=== PATIENT | female | born 2005 | race Caucasian/White ===

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

== ENCOUNTER 2024-05-07 20:06 | Emergency (ER) | payer MEDICAID ==
[~2024-05-07] VITALS: Ht 167.6 cm; Wt 72.0 kg
[~2024-05-07 20:06] MED LIST changes: -DIF150T PO; +GUAI600T45 PO
[2024-05-07 20:11] VITALS: TEMP 98.6
[2024-05-07 20:34] LABS: BASOPHILS % (AUTO) 0.4 % (0-1); BILIRUBIN,URINE SMALL (Neg); CLARITY,URINE SLIGHTLY CLOUDY (Clear); COLOR,URINE YELLOW (Yellow); EOSINOPHILS # (AUTO) 0.1 X10'3 (0-0.9); EOSINOPHILS % (AUTO) 1.9 % (0-6); GLUCOSE, URINE NEGATIVE (Neg); HEMATOCRIT 37.7 % (35.0-45.0); HEMOGLOBIN 11.9 g/dl (12.0-16.0); KETONES,URINE NEGATIVE (Neg); LEUKOCYTE ESTERASE ,URINE NEGATIVE (Neg); LYMPHOCYTES # (AUTO) 2.3 X10'3 (1.1-4.8); LYMPHOCYTES % (AUTO) 31.1 % (21-51); MEAN CORPUSCULAR HEMOGLOBIN 26.7 PG (27.0-31.0); MEAN CORPUSCULAR HGB CONC 31.6 g/dL (33.0-36.5); MEAN CORPUSCULAR VOLUME 84.2 FL (78-98); MEAN PLATELET VOLUME 7.9 FL (7.4-10.4); MONOCYTES # (AUTO) 0.6 X10'3 (0-0.9); MONOCYTES % (AUTO) 7.5 % (2-12); NEUTROPHILS # (AUTO) 4.4 X10'3 (1.8-7.7); NEUTROPHILS % (AUTO) 59.1 % (42-75); NITRITES, URINE NEGATIVE (Neg); OCCULT BLOOD,URINE NEGATIVE (Neg); PLATELET COUNT 311 X10'3 (140-440); PROTEIN,URINE NEGATIVE (Neg); RED BLOOD COUNT 4.48 X10'6 (4.20-5.60); RED CELL DISTRIBUTION WIDTH 18.3 % (11.5-14.5); UROBILINOGEN,URINE 0.2 E.U/dL (0.2-1.0); WHITE BLOOD COUNT 7.5 X10'3 (4.5-11.0)
[2024-05-07 20:36] LABS: URINE HCG NEGATIVE (NEG)
[2024-05-07 20:37] LABS: UA COLLECTION TYPE CLN CATCH MIDSTREAM
[2024-05-07 20:45] LABS: MUCUS STRANDS FEW /LPF (Neg); SQUAMOUS EPITHELIAL CELL,UR MANY /LPF (FEW)
[2024-05-07 20:46] LABS: BACTERIA,URINE 1+ /HPF (Neg); RBC,URINE 0-2 /HPF (0-2)
[2024-05-07 20:49] LABS: ALANINE AMINOTRANSFERASE 29 U/L (12-78); ALBUMIN 3.9 G/DL (3.4-5.0); ALKALINE PHOSPHATASE 55 IU/L (20-180); ANION GAP 8 (8-16); ASPARTATE AMINO TRANSFERASE 17 U/L (10-37); BILIRUBIN,TOTAL 0.2 MG/DL (0.1-1.0); BLOOD UREA NITROGEN 10 MG/DL (7-18); BUN/CREATININE RATIO 13.7 (10.0-20.0); CALCIUM 9.4 MG/DL (8.5-10.1); CHLORIDE 104 MMOL/L (99-107); CREATININE 0.73 MG/DL (0.40-0.90); GLUCOSE 103 MG/DL (70-104); LIPASE 40 U/L (16-77); POTASSIUM 3.9 MMOL/L (3.5-5.1); SODIUM 139 MMOL/L (135-145); TOTAL CARBON DIOXIDE 27.3 MMOL/L (24-32); eCRCL 115 ML/MIN; eGFR > 90 ML/MIN
[2024-05-07 21:38] VITALS: BP 116/73; PULSE 72; RESP 16; O2SAT 98
== END 2024-05-07 22:00 | disposition home or self-care (01) ==
LOC: ER 20:06
DX: N76.0 Acute vaginitis (principal); R10.30 Lower abdominal pain, unspecified; J45.909 Unspecified asthma, uncomplicated; F41.9 Anxiety disorder, unspecified; Z88.0 Allergy status to penicillin; Z88.2 Allergy status to sulfonamides; Z88.1 Allergy status to other antibiotic agents; Z79.899 Other long term (current) drug therapy
CPT/HCPCS: 36415; 80053; 81001; 81025; 83690; 85025; 99283

== ENCOUNTER 2024-05-23 12:05 | Emergency (ER) | payer MEDICAID ==
[~2024-05-23] VITALS: Ht 167.6 cm; Wt 64.0 kg
[2024-05-23 12:07] VITALS: TEMP 98
[2024-05-23 12:48] LABS: BASOPHILS % (AUTO) 0.3 % (0-1); EOSINOPHILS % (AUTO) 0.7 % (0-6); HEMATOCRIT 37.7 % (35.0-45.0); HEMOGLOBIN 12.1 g/dl (12.0-16.0); LYMPHOCYTES # (AUTO) 1.6 X10'3 (1.1-4.8); LYMPHOCYTES % (AUTO) 25.5 % (21-51); MEAN CORPUSCULAR HEMOGLOBIN 27.4 PG (27.0-31.0); MEAN CORPUSCULAR VOLUME 85.7 FL (78-98); MEAN PLATELET VOLUME 8.4 FL (7.4-10.4); MONOCYTES # (AUTO) 0.5 X10'3 (0-0.9); MONOCYTES % (AUTO) 8.7 % (2-12); NEUTROPHILS # (AUTO) 4.1 X10'3 (1.8-7.7); NEUTROPHILS % (AUTO) 64.8 % (42-75); PLATELET COUNT 288 X10'3 (140-440); RED CELL DISTRIBUTION WIDTH 19.4 % (11.5-14.5); WHITE BLOOD COUNT 6.3 X10'3 (4.5-11.0)
[2024-05-23 13:02] LABS: ALANINE AMINOTRANSFERASE 28 U/L (12-78); ALKALINE PHOSPHATASE 47 IU/L (20-180); ANION GAP 7 (8-16); ASPARTATE AMINO TRANSFERASE 19 U/L (10-37); BILIRUBIN,TOTAL 0.4 MG/DL (0.1-1.0); BLOOD UREA NITROGEN 6 MG/DL (7-18); BUN/CREATININE RATIO 9.2 (10.0-20.0); CALCIUM 9.2 MG/DL (8.5-10.1); CHLORIDE 106 MMOL/L (99-107); CREATININE 0.65 MG/DL (0.40-0.90); GLUCOSE 98 MG/DL (70-104); LIPASE 36 U/L (16-77); POTASSIUM 3.5 MMOL/L (3.5-5.1); SODIUM 138 MMOL/L (135-145); TOTAL CARBON DIOXIDE 24.7 MMOL/L (24-32); eCRCL 129 ML/MIN; eGFR > 90 ML/MIN
[2024-05-23 13:03] LABS: URINE HCG POSITIVE (NEG)
[2024-05-23 13:07] LABS: BILIRUBIN,URINE MODERATE (Neg); CLARITY,URINE CLOUDY (Clear); COLOR,URINE YELLOW (Yellow); GLUCOSE, URINE NEGATIVE (Neg); KETONES,URINE NEGATIVE (Neg); LEUKOCYTE ESTERASE ,URINE NEGATIVE (Neg); NITRITES, URINE NEGATIVE (Neg); OCCULT BLOOD,URINE NEGATIVE (Neg); PH,URINE 6.5 (4.8-8.0); PROTEIN,URINE NEGATIVE (Neg); UROBILINOGEN,URINE 0.2 E.U/dL (0.2-1.0)
[2024-05-23 13:17] LABS: UA COLLECTION TYPE CLN CATCH MIDSTREAM
[2024-05-23 13:18] LABS: BACTERIA,URINE 3+ /HPF (Neg); RBC,URINE NONE SEEN /HPF (0-2); SQUAMOUS EPITHELIAL CELL,UR MANY /LPF (FEW); WBC,URINE 0-4 /HPF (0-4)
[2024-05-23 14:36] LABS: HCG SERUM QL POSITIVE
[2024-05-23 15:28] VITALS: BP 115/76; PULSE 92; RESP 18; O2SAT 98
== END 2024-05-23 16:19 | disposition home or self-care (01) ==
LOC: ER 12:05
DX: Z88.8 Allergy status to other drugs, medicaments and biological substances (principal); Z88.1 Allergy status to other antibiotic agents; Z88.2 Allergy status to sulfonamides; Z79.899 Other long term (current) drug therapy; J45.909 Unspecified asthma, uncomplicated; F41.9 Anxiety disorder, unspecified; O99.611 Diseases of the digestive system complicating pregnancy, first trimester
CPT/HCPCS: 36415; 76801; 80053; 81001; 81025; 83690; 84703; 85025; 99284

== ENCOUNTER 2024-06-02 17:47 | Emergency (ER) | payer MEDICAID ==
[~2024-06-02] VITALS: Ht 167.6 cm; Wt 76.3 kg
[2024-06-02 18:11] LABS: BILIRUBIN,URINE SMALL (Neg); CLARITY,URINE SLIGHTLY CLOUDY (Clear); COLOR,URINE YELLOW (Yellow); GLUCOSE, URINE NEGATIVE (Neg); KETONES,URINE NEGATIVE (Neg); LEUKOCYTE ESTERASE ,URINE NEGATIVE (Neg); NITRITES, URINE NEGATIVE (Neg); OCCULT BLOOD,URINE NEGATIVE (Neg); PH,URINE 6.5 (4.8-8.0); PROTEIN,URINE NEGATIVE (Neg); UROBILINOGEN,URINE 0.2 E.U/dL (0.2-1.0)
[2024-06-02 18:16] LABS: UA COLLECTION TYPE CLN CATCH MIDSTREAM
[2024-06-02 18:28] LABS: BACTERIA,URINE 1+ /HPF (Neg); RBC,URINE 0-2 /HPF (0-2); SQUAMOUS EPITHELIAL CELL,UR FEW /LPF (FEW)
[2024-06-02 18:29] LABS: MUCUS STRANDS FEW /LPF (Neg)
[2024-06-02 19:03] LABS: BASOPHILS % (AUTO) 0.3 % (0-1); EOSINOPHILS # (AUTO) 0.1 X10'3 (0-0.9); HEMATOCRIT 34.2 % (35.0-45.0); LYMPHOCYTES # (AUTO) 2.1 X10'3 (1.1-4.8); LYMPHOCYTES % (AUTO) 32.7 % (21-51); MEAN CORPUSCULAR HEMOGLOBIN 27.4 PG (27.0-31.0); MEAN CORPUSCULAR HGB CONC 32.2 g/dL (33.0-36.5); MEAN CORPUSCULAR VOLUME 85.3 FL (78-98); MEAN PLATELET VOLUME 8.3 FL (7.4-10.4); MONOCYTES # (AUTO) 0.8 X10'3 (0-0.9); MONOCYTES % (AUTO) 12.1 % (2-12); NEUTROPHILS # (AUTO) 3.5 X10'3 (1.8-7.7); NEUTROPHILS % (AUTO) 53.9 % (42-75); PLATELET COUNT 253 X10'3 (140-440); RED BLOOD COUNT 4.01 X10'6 (4.20-5.60); RED CELL DISTRIBUTION WIDTH 19.1 % (11.5-14.5); WHITE BLOOD COUNT 6.4 X10'3 (4.5-11.0)
[2024-06-02 19:12] VITALS: BP 120/85; PULSE 94; RESP 18; TEMP 98.4; O2SAT 97
[2024-06-02 19:25] LABS: ANISOCYTOSIS 2+; ELLIPTOCYTES 1+; PLATELET ESTIMATE NORMAL
[2024-06-02 19:36] LABS: ALANINE AMINOTRANSFERASE 27 U/L (12-78); ALBUMIN 3.9 G/DL (3.4-5.0); ALKALINE PHOSPHATASE 49 IU/L (20-180); ANION GAP 9 (8-16); ASPARTATE AMINO TRANSFERASE 20 U/L (10-37); BILIRUBIN,TOTAL 0.3 MG/DL (0.1-1.0); BLOOD UREA NITROGEN 7 MG/DL (7-18); BUN/CREATININE RATIO 12.3 (10.0-20.0); CALCIUM 8.9 MG/DL (8.5-10.1); CHLORIDE 102 MMOL/L (99-107); CREATININE 0.57 MG/DL (0.40-0.90); GLUCOSE 88 MG/DL (70-104); POTASSIUM 3.5 MMOL/L (3.5-5.1); SODIUM 136 MMOL/L (135-145); TOTAL CARBON DIOXIDE 25.2 MMOL/L (24-32); TOTAL PROTEIN 7.8 G/DL (6.4-8.2); eCRCL 147 ML/MIN; eGFR > 90 ML/MIN
[2024-06-02 19:52] LABS: BETA HCG,QUANTITATIVE 10001 mIU/ml
== END 2024-06-02 19:00 | disposition home or self-care (01) ==
LOC: ER 17:47
DX: O26.891 Other specified pregnancy related conditions, first trimester (principal); J45.909 Unspecified asthma, uncomplicated; F41.9 Anxiety disorder, unspecified; Z3A.01 Less than 8 weeks gestation of pregnancy; Z88.0 Allergy status to penicillin; Z88.2 Allergy status to sulfonamides; Z91.018 Allergy to other foods; Z79.899 Other long term (current) drug therapy
CPT/HCPCS: 36415; 76801; 80053; 81001; 84702; 85008; 85025; 86900; 86901; 87088; 99284

== ENCOUNTER 2024-06-06 14:27 | Emergency (ER) | payer MEDICAID ==
[~2024-06-06] VITALS: Ht 167.6 cm; Wt 64.0 kg
[2024-06-06 14:29] VITALS: TEMP 97.9
[2024-06-06 17:02] VITALS: BP 115/67; PULSE 81; RESP 16; O2SAT 98
== END 2024-06-06 17:05 | disposition home or self-care (01) ==
LOC: ER 14:27
DX: O26.891 Other specified pregnancy related conditions, first trimester (principal); J45.909 Unspecified asthma, uncomplicated; F41.9 Anxiety disorder, unspecified; Z88.2 Allergy status to sulfonamides; Z3A.01 Less than 8 weeks gestation of pregnancy; Z88.0 Allergy status to penicillin; Z88.3 Allergy status to other anti-infective agents; Z79.899 Other long term (current) drug therapy
CPT/HCPCS: 99281

== ENCOUNTER 2024-06-16 08:39 | Emergency (ER) | payer MEDICAID ==
[~2024-06-16] VITALS: Ht 167.6 cm; Wt 74.8 kg
[2024-06-16] MEDS: acetaminophen 325mg tablet PO ONE ×2 (12:05→12:10)
[2024-06-16 12:16] VITALS: BP 122/74; PULSE 70; RESP 16; TEMP 98.1; O2SAT 100
== END 2024-06-16 12:24 | disposition home or self-care (01) ==
LOC: ER 08:40
DX: O20.9 Hemorrhage in early pregnancy, unspecified (principal); J45.909 Unspecified asthma, uncomplicated; F41.9 Anxiety disorder, unspecified; Z88.2 Allergy status to sulfonamides; Z88.0 Allergy status to penicillin; Z88.8 Allergy status to other drugs, medicaments and biological substances; Z91.018 Allergy to other foods; Z79.899 Other long term (current) drug therapy; Z3A.11 11 weeks gestation of pregnancy
CPT/HCPCS: 36415; 76801; 84702; 99284

== ENCOUNTER 2024-06-25 19:36 | Emergency (ER) | payer MEDICAID ==
[~2024-06-25] VITALS: Ht 167.6 cm; Wt 75.9 kg
[2024-06-25 19:49] VITALS: PULSE 89; TEMP 98.4
[2024-06-25 22:04] VITALS: RESP 18
== END 2024-06-25 22:07 | disposition left against medical advice (07) ==
LOC: ER 19:37
DX: O46.90 Antepartum hemorrhage, unspecified, unspecified trimester (principal); J45.909 Unspecified asthma, uncomplicated; Z3A.00 Weeks of gestation of pregnancy not specified; Z88.0 Allergy status to penicillin; Z88.2 Allergy status to sulfonamides; Z88.3 Allergy status to other anti-infective agents; Z79.899 Other long term (current) drug therapy
CPT/HCPCS: 76856; 93976; 99284

== ENCOUNTER 2024-07-06 17:34 | Emergency (ER) | payer MEDICAID ==
[~2024-07-06] VITALS: Ht 167.6 cm; Wt 59.9 kg
[2024-07-06 18:52] LABS: BASOPHILS % (AUTO) 0.3 % (0-1); EOSINOPHILS # (AUTO) 0.1 X10'3 (0-0.9); EOSINOPHILS % (AUTO) 1.5 % (0-6); HEMATOCRIT 33.5 % (35.0-45.0); HEMOGLOBIN 10.7 g/dl (12.0-16.0); LYMPHOCYTES # (AUTO) 2.1 X10'3 (1.1-4.8); LYMPHOCYTES % (AUTO) 35.7 % (21-51); MEAN CORPUSCULAR HEMOGLOBIN 26.9 PG (27.0-31.0); MEAN CORPUSCULAR HGB CONC 31.9 g/dL (33.0-36.5); MEAN CORPUSCULAR VOLUME 84.5 FL (78-98); MEAN PLATELET VOLUME 8.1 FL (7.4-10.4); MONOCYTES # (AUTO) 0.5 X10'3 (0-0.9); MONOCYTES % (AUTO) 8.3 % (2-12); NEUTROPHILS # (AUTO) 3.2 X10'3 (1.8-7.7); NEUTROPHILS % (AUTO) 54.2 % (42-75); PLATELET COUNT 342 X10'3 (140-440); RED BLOOD COUNT 3.96 X10'6 (4.20-5.60); RED CELL DISTRIBUTION WIDTH 17.3 % (11.5-14.5); WHITE BLOOD COUNT 5.8 X10'3 (4.5-11.0)
[2024-07-06 18:57] LABS: ALBUMIN 3.9 G/DL (3.4-5.0); ANION GAP 6 (8-16); BLOOD UREA NITROGEN 7 MG/DL (7-18); BUN/CREATININE RATIO 9.1 (10.0-20.0); CALCIUM 8.9 MG/DL (8.5-10.1); CHLORIDE 103 MMOL/L (99-107); CREATININE 0.77 MG/DL (0.40-0.90); GLUCOSE 91 MG/DL (70-104); POTASSIUM 3.5 MMOL/L (3.5-5.1); SODIUM 136 MMOL/L (135-145); TOTAL CARBON DIOXIDE 26.7 MMOL/L (24-32); eCRCL 109 ML/MIN; eGFR > 90 ML/MIN
[2024-07-06 19:00] LABS: D-DIMER 0.83 MG/L FEU (0-0.50)
[2024-07-06] MEDS ORDERED: iohexol 350MG/ML 100ml bottle IV ONE (19:08)
[2024-07-06 19:41] VITALS: BP 116/77; PULSE 98; RESP 19; O2SAT 98
[2024-07-06] MEDS ORDERED: HYDR-3686 PO (20:30)
[2024-07-06 20:32] VITALS: TEMP 97.4
== END 2024-07-06 20:33 | disposition home or self-care (01) ==
LOC: ER 17:34
DX: R07.89 Other chest pain (principal); F41.9 Anxiety disorder, unspecified; J45.909 Unspecified asthma, uncomplicated; Z88.0 Allergy status to penicillin; Z88.2 Allergy status to sulfonamides; Z88.3 Allergy status to other anti-infective agents; Z79.899 Other long term (current) drug therapy
CPT/HCPCS: 36415; 71046; 71275; 80048; 85025; 85379; 93005; 99285; Q9967

== ENCOUNTER 2024-09-01 10:45 | Emergency (ER) | payer MEDICAID ==
[~2024-09-01] VITALS: Ht 167.6 cm; Wt 76.5 kg
[2024-09-01 12:18] VITALS: BP 128/67; PULSE 74; RESP 16; TEMP 98.1; O2SAT 99
== END 2024-09-01 12:11 | disposition home or self-care (01) ==
LOC: ER 10:46
DX: O26.891 Other specified pregnancy related conditions, first trimester (principal); O99.511 Diseases of the respiratory system complicating pregnancy, first trimester; R10.11 Right upper quadrant pain; J45.909 Unspecified asthma, uncomplicated; F41.9 Anxiety disorder, unspecified; Z3A.01 Less than 8 weeks gestation of pregnancy; Z88.0 Allergy status to penicillin; Z88.2 Allergy status to sulfonamides; Z91.018 Allergy to other foods; Z88.8 Allergy status to other drugs, medicaments and biological substances
CPT/HCPCS: 36415; 76801; 76817; 84702; 93976; 99284

== ENCOUNTER 2024-09-07 14:03 | Emergency (ER) | payer MEDICAID ==
[~2024-09-07] VITALS: Ht 167.6 cm; Wt 77.7 kg
[2024-09-07 14:06] VITALS: BP 118/57; PULSE 94; RESP 16; TEMP 98.5; O2SAT 100
[2024-09-07 14:30] LABS: BILIRUBIN,URINE NEGATIVE (Neg); CLARITY,URINE CLEAR (Clear); COLOR,URINE STRAW (Yellow); GLUCOSE, URINE NEGATIVE (Neg); KETONES,URINE NEGATIVE (Neg); LEUKOCYTE ESTERASE ,URINE NEGATIVE (Neg); NITRITES, URINE NEGATIVE (Neg); OCCULT BLOOD,URINE NEGATIVE (Neg); PROTEIN,URINE NEGATIVE (Neg); UROBILINOGEN,URINE 0.2 E.U/dL (0.2-1.0)
[2024-09-07 14:31] LABS: UA COLLECTION TYPE CLN CATCH MIDSTREAM
[2024-09-07 14:32] LABS: URINE HCG POSITIVE (NEG)
[2024-09-07 15:24] LABS: BASOPHILS % (AUTO) 0.2 % (0-1); EOSINOPHILS % (AUTO) 0.7 % (0-6); HEMOGLOBIN 10.8 g/dl (12.0-16.0); LYMPHOCYTES # (AUTO) 1.8 X10'3 (1.1-4.8); LYMPHOCYTES % (AUTO) 28.2 % (21-51); MEAN CORPUSCULAR HEMOGLOBIN 27.1 PG (27.0-31.0); MEAN CORPUSCULAR HGB CONC 32.7 g/dL (33.0-36.5); MEAN PLATELET VOLUME 8.6 FL (7.4-10.4); MONOCYTES # (AUTO) 0.6 X10'3 (0-0.9); MONOCYTES % (AUTO) 8.9 % (2-12); PLATELET COUNT 307 X10'3 (140-440); RED BLOOD COUNT 3.98 X10'6 (4.20-5.60); RED CELL DISTRIBUTION WIDTH 16.8 % (11.5-14.5); WHITE BLOOD COUNT 6.4 X10'3 (4.5-11.0)
[2024-09-07 15:35] LABS: ALANINE AMINOTRANSFERASE 33 U/L (12-78); ALBUMIN 3.9 G/DL (3.4-5.0); ALKALINE PHOSPHATASE 56 IU/L (20-180); ANION GAP 7 (8-16); ASPARTATE AMINO TRANSFERASE 19 U/L (10-37); BILIRUBIN,TOTAL 0.3 MG/DL (0.1-1.0); BLOOD UREA NITROGEN 7 MG/DL (7-18); BUN/CREATININE RATIO 11.3 (10.0-20.0); CALCIUM 9.2 MG/DL (8.5-10.1); CHLORIDE 105 MMOL/L (99-107); CREATININE 0.62 MG/DL (0.40-0.90); GLUCOSE 97 MG/DL (70-104); LIPASE 39 U/L (16-77); POTASSIUM 3.9 MMOL/L (3.5-5.1); SODIUM 139 MMOL/L (135-145); TOTAL CARBON DIOXIDE 27.1 MMOL/L (24-32); eCRCL 136 ML/MIN; eGFR > 90 ML/MIN
== END 2024-09-07 18:46 | disposition home or self-care (01) ==
LOC: ER 14:04
DX: O26.891 Other specified pregnancy related conditions, first trimester (principal); R10.9 Unspecified abdominal pain; J45.909 Unspecified asthma, uncomplicated; Z3A.01 Less than 8 weeks gestation of pregnancy; Z88.0 Allergy status to penicillin; Z88.2 Allergy status to sulfonamides; Z79.899 Other long term (current) drug therapy
CPT/HCPCS: 36415; 80053; 81003; 81025; 83690; 85025; 99283

== ENCOUNTER 2024-09-11 16:51 | Emergency (ER) | payer MEDICAID ==
[~2024-09-11] VITALS: Ht 157.5 cm; Wt 92.7 kg
[2024-09-11] MEDS ORDERED: METR-159 PO (20:36)
[2024-09-11] MEDS: ondansetron 4mg rapidly disintigrating tab PO ONE (20:50)
[2024-09-11] MEDS: metroNIDAZOLE 500mg tablet PO ONE (20:50)
[2024-09-11 20:51] VITALS: BP 114/74; PULSE 95; RESP 18; TEMP 98.6; O2SAT 99
== END 2024-09-11 20:52 | disposition home or self-care (01) ==
LOC: ER 16:51
DX: B96.89 Other specified bacterial agents as the cause of diseases classified elsewhere (principal); O23.591 Infection of other part of genital tract in pregnancy, first trimester; O26.891 Other specified pregnancy related conditions, first trimester; M25.512 Pain in left shoulder; F41.9 Anxiety disorder, unspecified; J45.909 Unspecified asthma, uncomplicated; Z91.018 Allergy to other foods; Z88.0 Allergy status to penicillin; Z88.2 Allergy status to sulfonamides; Z88.8 Allergy status to other drugs, medicaments and biological substances; Z3A.01 Less than 8 weeks gestation of pregnancy
CPT/HCPCS: 36415; 84702; 87210; 99283

== ENCOUNTER 2024-10-19 21:27 | Emergency (ER) | payer MEDICAID ==
[~2024-10-19] VITALS: Ht 167.6 cm; Wt 77.8 kg
[2024-10-19 21:47] VITALS: BP 122/81; PULSE 105; RESP 18; TEMP 98.2; O2SAT 96
[2024-10-19] MEDS ORDERED: CLOT30CR24 TOP (22:24)
[2024-10-19] MEDS: clotrimazole 1% vaginal cream 45gm VG SCH (23:10)
== END 2024-10-19 23:15 | disposition home or self-care (01) ==
LOC: ER 21:28
DX: O98.811 Other maternal infectious and parasitic diseases complicating pregnancy, first trimester (principal); B37.31 Acute candidiasis of vulva and vagina; J45.909 Unspecified asthma, uncomplicated; Z88.0 Allergy status to penicillin; Z88.2 Allergy status to sulfonamides; Z88.3 Allergy status to other anti-infective agents; Z79.899 Other long term (current) drug therapy; Z3A.11 11 weeks gestation of pregnancy
CPT/HCPCS: 99282

== ENCOUNTER 2024-11-17 15:53 | Emergency (ER) | payer MEDICAID ==
[~2024-11-17] VITALS: Ht 167.6 cm; Wt 76.7 kg
[~2024-11-17 15:53] MED LIST changes: +CLOT30CR24 TOP
[2024-11-17] MEDS ORDERED: CLOT30CR19 TOP (17:00)
[2024-11-17 17:01] LABS: BILIRUBIN,URINE SMALL (Neg); CLARITY,URINE SLIGHTLY CLOUDY (Clear); COLOR,URINE YELLOW (Yellow); GLUCOSE, URINE NEGATIVE (Neg); KETONES,URINE TRACE mg/dl (Neg); LEUKOCYTE ESTERASE ,URINE NEGATIVE (Neg); NITRITES, URINE NEGATIVE (Neg); OCCULT BLOOD,URINE NEGATIVE (Neg); PH,URINE 6.5 (4.8-8.0); PROTEIN,URINE NEGATIVE (Neg); UROBILINOGEN,URINE 0.2 E.U/dL (0.2-1.0)
[2024-11-17 17:04] LABS: UA COLLECTION TYPE VOIDED
[2024-11-17 17:06] LABS: BACTERIA,URINE 3+ /HPF (Neg); RBC,URINE NONE SEEN /HPF (0-2); SQUAMOUS EPITHELIAL CELL,UR MANY /LPF (FEW)
[2024-11-17 17:19] VITALS: BP 106/70; PULSE 94; RESP 16; TEMP 98; O2SAT 96
== END 2024-11-17 17:05 ==
LOC: ER 15:54
DX: O98.819 Other maternal infectious and parasitic diseases complicating pregnancy, unspecified trimester (principal); B37.31 Acute candidiasis of vulva and vagina; J45.909 Unspecified asthma, uncomplicated; F41.9 Anxiety disorder, unspecified; Z88.0 Allergy status to penicillin; Z88.2 Allergy status to sulfonamides; Z88.1 Allergy status to other antibiotic agents; Z88.8 Allergy status to other drugs, medicaments and biological substances; Z91.018 Allergy to other foods; Z79.899 Other long term (current) drug therapy
CPT/HCPCS: 81001; 87210; 99283; 99285

== ENCOUNTER 2025-06-17 17:55 | Emergency (ER) | payer MEDICAID ==
[~2025-06-17] VITALS: Ht 167.6 cm; Wt 90.0 kg
[~2025-06-17 17:55] MED LIST changes: +CLOT30CR19 TOP
[2025-06-17 18:00] VITALS: BP 127/79; PULSE 78; RESP 18; TEMP 97.9; O2SAT 98
--- NOTE | 2025-06-17 18:07 | Physician Documentation ---
History of Present Illness ~ Chief Complaint: Arm Pain Stated Complaint: POSS BLOOD CLOT IN ARM Time Seen by MD: 18:43 Primary Medical Doctor: Alex MCCARTHY HPI Is a 20-year-old female that presents to the emergency department for evaluation of left arm swelling and redness that she reports her doctor told her to report to the emergency room for possible clot. Patient reports that she has had these symptoms for approximately 5 weeks intermittently. Patient reports that she has a clotting disorder but she is unaware of with clotting disorders called because she is adopted but she was only told that she has a clotting disorder. Curre ntly there is no swelling or redness to the area although there is a an area of point tenderness to the anterior forearm. No other symptoms reported at this time. Tetanus within 5 years: Yes Medication Reconciliation Allergies: Coded Allergies: Penicillins (Verified Allergy, Unknown, RASH ,THROAT CLOSE ,HIVES, 06/17) Sulfa (Sulfonamide Antibiotics) (Verified Allergy, Unknown, RASH ,THROAT CLOSE ,HIVES, 06/17/25) amoxicillin (Verified Allergy, Unknown, RASH ,THROAT CLOSE ,HIVES, 06/17/25) lamotrigine (Verified Allergy, Unknown, RASH ,THROAT CLOSE ,HIVES, 06/17/25) levetiracetam (Verified Allergy, Unknown, RASH ,THROAT CLOSE ,HIVES, 06/17/25) tomato (Verified Allergy, Unknown, 06/17/25) Scheduled Albuterol Sulfate (Proventil Hfa), 2 PUFFS INH Q4H Clotrimazole (Clotrimazole), 1 APPLIC TOP Q12H Clotrimazole (Clotrimazole), 1 APPLIC TOP Q8H Clotrimazole (Clotrimazole), 1 APPLIC TOP Q8H Fluconazole (Fluconazole), 1 TAB PO Q48H Guaifenesin (Mucinex), 1 TAB PO Q12H Hydralazine HCl (Hydralazine HCl), 1 TAB PO Q8H Hydroxyzine Pamoate (Vistaril), 1 CAP PO qhs Hydroxyzine Pamoate (Vistaril), 25 MG PO DAILY Methylprednisolone (Medrol Dosepak), 4 MG PO UD Mirtazapine (Mirtazapine), 1 TAB PO HS Mirtazapine (Mirtazapine), 1 TAB PO HS Mirtazapine (Remeron), 30 MG PO qhs Mirtazapine (Mirtazapine), 1 TAB PO HS Mirtazapine (Remeron), 30 MG PO qhs Mirtazapine (Mirtazapine), 2 TAB PO HS Mirtazapine (Remeron), 2 TAB PO HS Mirtazapine (Remeron), 1 TAB PO HS Mirtazapine (Mirtazapine), 1 TAB PO HS Phenyleph/Pramoxin/Glycr/W.pet (Preparation H Cream), 2 GM RC BID Witch Jyoti (Tucks), 1 PAD TP BID Past Medical History Past Medical History: Seizures, Asthma, Anxiety Past Surgical History: noncontributory Alcohol Use: Other Drug Use: none Lives with: Family Lives In: Home Physical Exam Vital Signs: Temperature: 97.9, Source: Temporal, Heart Rate: 78, Respiratory Rate: 18, BP: 127/79, Pulse Oximetry: 98, Weight: 90.000 Progress Results/Orders Results/Orders Medical Decision Making Findings Patient left after seeing provider and before diagnostics were performed. Departure Disposition: 07 LEFT AWOL/ELOPED Condition: Stable Referrals: NO PRIMARY CARE PROVIDER (PCP) Signature Scribe Signature: N/A Attestation: N/A REAGAN ROYAL Jun 17, 2025 18:07 CAMRYN VOGT MD Jun 22, 2025 06:10
== END 2025-06-17 19:39 | disposition left against medical advice (07) ==
LOC: ER 17:55
DX: M79.602 Pain in left arm (principal); J45.909 Unspecified asthma, uncomplicated; F41.9 Anxiety disorder, unspecified; Z88.0 Allergy status to penicillin; Z88.2 Allergy status to sulfonamides
CPT/HCPCS: 99281; 99282

== ENCOUNTER 2025-07-10 23:11 | Emergency (ER) | payer MEDICAID ==
[~2025-07-10] VITALS: Ht 167.6 cm; Wt 88.3 kg
--- NOTE | 2025-07-11 01:11 | Physician Documentation ---
History of Present Illness ~ Chief Complaint: See Chief Complaint Stated Complaint: BLOOD CLOTS IN ARM Time Seen by MD: 01:02 Primary Medical Doctor: Alex MCCARTHY HPI Patient presents to the emergency room stating that she has blood clots in her arm. She was seen here recently for same complaint but he eloped. No imaging was done at that time. She states she had an outpatient ultrasound performed by her doctor and states they found clots therefore she came here because she states that her doctor would not receive the report for 48 hours. Denies chest pain or shortness of breath. Tetanus within 5 years: Yes Medication Reconciliation Allergies: Coded Allergies: Penicillins (Verified Allergy, Unknown, RASH ,THROAT CLOSE ,HIVES, 07/10/25) Sulfa (Sulfonamide Antibiotics) (Verified Allergy, Unknown, RASH ,THROAT CLOSE ,HIVES, 07/10/25) amoxicillin (Verified Allergy, Unknown, RASH ,THROAT CLOSE ,HIVES, 07/10/25) lamotrigine (Verified Allergy, Unknown, RASH ,THROAT CLOSE ,HIVES, 07/10/25) levetiracetam (Verified Allergy, Unknown, RASH ,THROAT CLOSE ,HIVES, 07/10/25) tomato (Verified Allergy, Unknown, 07/10/25) Scheduled Albuterol Sulfate (Proventil Hfa), 2 PUFFS INH Q4H Clotrimazole (Clotrimazole), 1 APPLIC TOP Q12H Clotrimazole (Clotrimazole), 1 APPLIC TOP Q8H Clotrimazole (Clotrimazole), 1 APPLIC TOP Q8H Fluconazole (Fluconazole), 1 TAB PO Q48H Guaifenesin (Mucinex), 1 TAB PO Q12H Hydralazine HCl (Hydralazine HCl), 1 TAB PO Q8H Hydroxyzine Pamoate (Vistaril), 1 CAP PO qhs Hydroxyzine Pamoate (Vistaril), 25 MG PO DAILY Methylprednisolone (Medrol Dosepak), 4 MG PO UD Mirtazapine (Mirtazapine), 1 TAB PO HS Mirtazapine (Mirtazapine), 1 TAB PO HS Mirtazapine (Remeron), 30 MG PO qhs Mirtazapine (Mirtazapine), 1 TAB PO HS Mirtazapine (Remeron), 30 MG PO qhs Mirtazapine (Mirtazapine), 2 TAB PO HS Mirtazapine (Remeron), 2 TAB PO HS Mirtazapine (Remeron), 1 TAB PO HS Mirtazapine (Mirtazapine), 1 TAB PO HS Phenyleph/Pramoxin/Glycr/W.pet (Preparation H Cream), 2 GM RC BID Witch Jyoti (Tucks), 1 PAD TP BID Past Medical History Past Medical History: Seizures, Asthma, Anxiety Past Surgical History: noncontributory Alcohol Use: Other Drug Use: none Lives with: Family Lives In: Home Review of Systems ROS All review of systems negative except as per HPI Physical Exam Vital Signs: Temperature: 97.8, Source: Temporal, Heart Rate: 76, Respiratory Rate: 16, BP: 113/77, Pulse Oximetry: 98, Weight: 88.300 Physical Exam General: Patient is awake, alert, oriented x4 in no acute distress and well appearing.~ Head: Normocephalic and atraumatic. Eyes: Conjunctival normal. EOMI. PERRL. ENT: Mucous membranes moist. Neck: Supple, trachea is midline. Chest: Clear to auscultation bilaterally without rales, rhonchi, or wheezes. There is no accessory muscle use or retractions. Cardiac: RRR without murmurs, gallops, or rubs. Abd: Soft, nondistended, nontender, with normoactive bowel sounds. No guarding, rebound, or rigidity. Extremities: Normal strength. Normal range of motion. No deformities or edema. No appreciable abnormality. Radial pulses strong Progress Results/Orders Results/Orders Vital Signs 07/10/25 23:17 Temp 97.8 Pulse 76 Resp 16 B/P (MAP) 113/77 Pulse Ox 98 Medical Decision Making Additional information obtaine: old records Findings Patient presents to the emergency room with report of clots in her arm. No chest pain or shortness of breath and he had not feel she requires investigation into pulmonary embolism. I will give her a few days of anticoagulation until she is able to follow up with her doctor that has benefit outweighs the risks. General Diff Dx:Considerations: Include: Abrasion, Contusion, Fracture, Hematoma, Laceration, Malunion, Neurovascular injury, Open fracture, Sprain, Ulcer, Other Shoulder Diff Dx:Consideration: Include: AC separation, Adhesive capsulitis, Arthritis, Bicipital tendonitis, Calcific tendonitis, Cervical disc disease, Contusion, Dislocation, Fracture-humerus, Fracture-scapula, Fracture-clavicle, GB disease, Hematoma, Impingement syndrome, Myocardial infarction, Neurovascular injury, Open fracture-humerus, Open fracture-scapula, Open fracture-clavicle, Rotator cuff injury, SC dislocatoin, Sprain, Subacromial bursitis, Other Elbow Diff Dx:Considerations: Include: Abrasion, Arthritis, Contustion, DJD, Fracture-humerus, Fracture-radial head, Fracture-radius, Fracture-ulna, Gout, Hematoma, Laceration, Neurovascular injury, Olecranon bursitis, Open fracture, Osteomyelitis, Radial head subluxation, Rheumatoid arthritis, Septic, Sprain, Ulcer, Other Wrist Diff Dx:Considerations: Include: Abrasion, Arthritis, DJD, Gout, Rheumatoid, Septic, Carpal tunnel snydrome, Contusion, Dislocation, Fracture- carpal, Fracture-radius, Fracture-ulna, Ganglion, Laceration, Neurovascular injury, Open fracture, Strain, Other Hand Diff Dx:Considerations: Include: Abrasion, Arthritis, Contusion, DJD, Felon, Fracture-carpal, Fracture-metacarpal, Fracture-phalynx, Fracture-radius, Fracture-ulna, Gout, Hematoma, Herpetic sandy, Laceration, Neurovascular injury, Open fracture, Paronychia, Rheumatoid arthritis, Septic, Sprain, Subungual hematoma, Tenosynovitis, Volar plate injury, Cellulitis, Malunion, Other Finger Diff Dx:Considerations: Include: Abrasion, Cellulitis, Contusion, Dislocation, Fracture, Hematoma, Laceration, Neurovascular injury, Open fracture, Subungual hematoma, Other Departure Disposition: HOME / SELF CARE / HOMELESS Impression: Primary Impression: Arm pain Additional Impression: H/O blood clots Condition: Stable Discharge Instructions: Deep Vein Thrombosis Additional Instructions: I do not have the imaging for which he report is positive for blood clots. I will treat you empirically until you can follow up with your docotor. Follow up with your doctor as soon as possible Referrals: NO PRIMARY CARE PROVIDER (PCP) Prescriptions Apixaban (ELIQUIS) 5 Mg Tablet 2 TAB PO Q12H, #14 TAB 0 Refills Prov: PARISH BRADY MD 07/11/25 Signature Scribe Signature: No scribe Attestation: The note accurately reflects work and decisions made by me.Parish Brady MD 07/11/25 01:13 PARISH BRADY MD Jul 11, 2025 01:10
[2025-07-11] MEDS ORDERED: APIX5TAB3 PO (01:12)
[2025-07-11 01:39] VITALS: BP 110/76; PULSE 80; RESP 16; TEMP 98; O2SAT 99
== END 2025-07-11 01:44 | disposition home or self-care (01) ==
LOC: ER 23:12
DX: I74.2 Embolism and thrombosis of arteries of the upper extremities (principal); J45.909 Unspecified asthma, uncomplicated; F41.9 Anxiety disorder, unspecified; Z88.2 Allergy status to sulfonamides; Z88.0 Allergy status to penicillin
CPT/HCPCS: 99283

== ENCOUNTER 2025-07-14 16:02 | Emergency (ER) | payer MEDICAID ==
[~2025-07-14] VITALS: Ht 167.6 cm; Wt 89.1 kg
[~2025-07-14 16:02] MED LIST changes: +APIX5TAB3 PO
[2025-07-14 16:06] VITALS: BP 132/66; PULSE 88; RESP 16; TEMP 98.5; O2SAT 99
--- NOTE | 2025-07-14 17:20 | Physician Documentation ---
HPI ~ General Chief Complaint: Medication Request Stated Complaint: MED REQUEST Time Seen by MD: 16:25 Primary Medical Doctor: [facility] History of Present Illness HPI Comments This is a 20-year-old female who was recently diagnosed with a superficial venous thromboembolism to her left forearm, patient presents with imaging report from procedure [facility] which indicates obstructing superficial venous thromboembolism. Patient was placed on Eliquis by ER physician three days prior and was to be placed on Eliquis by primary care no a prescription was not sent, patient is requesting refill of Eliquis. Patient reports recent and history of blood clotting disorder. Patient reports no other acute symptoms or concerns. Medication Reconciliation Allergies: Coded Allergies: Penicillins (Verified Allergy, Unknown, RASH ,THROAT CLOSE ,HIVES, 07/14/25) Sulfa (Sulfonamide Antibiotics) (Verified Allergy, Unknown, RASH ,THROAT CLOSE ,HIVES, 07/14/25) amoxicillin (Verified Allergy, Unknown, RASH ,THROAT CLOSE ,HIVES, 07/14/25) lamotrigine (Verified Allergy, Unknown, RASH ,THROAT CLOSE ,HIVES, 07/14/25) levetiracetam (Verified Allergy, Unknown, RASH ,THROAT CLOSE ,HIVES, 07/14/25) tomato (Verified Allergy, Unknown, 07/14/25) Scheduled Albuterol Sulfate (Proventil Hfa), 2 PUFFS INH Q4H Apixaban (Eliquis), 2 TAB PO Q12H Apixaban (Eliquis), 1 TAB PO Q12H Clotrimazole (Clotrimazole), 1 APPLIC TOP Q12H Clotrimazole (Clotrimazole), 1 APPLIC TOP Q8H Clotrimazole (Clotrimazole), 1 APPLIC TOP Q8H Fluconazole (Fluconazole), 1 TAB PO Q48H Guaifenesin (Mucinex), 1 TAB PO Q12H Hydralazine HCl (Hydralazine HCl), 1 TAB PO Q8H Hydroxyzine Pamoate (Vistaril), 1 CAP PO qhs Hydroxyzine Pamoate (Vistaril), 25 MG PO DAILY Methylprednisolone (Medrol Dosepak), 4 MG PO UD Mirtazapine (Mirtazapine), 1 TAB PO HS Mirtazapine (Mirtazapine), 1 TAB PO HS Mirtazapine (Remeron), 30 MG PO qhs Mirtazapine (Mirtazapine), 1 TAB PO HS Mirtazapine (Remeron), 30 MG PO qhs Mirtazapine (Mirtazapine), 2 TAB PO HS Mirtazapine (Remeron), 2 TAB PO HS Mirtazapine (Remeron), 1 TAB PO HS Mirtazapine (Mirtazapine), 1 TAB PO HS Phenyleph/Pramoxin/Glycr/W.pet (Preparation H Cream), 2 GM RC BID Witch Jyoti (Tucks), 1 PAD TP BID Past Medical History Past Medical History: Seizures, Asthma, Anxiety Past Surgical History: noncontributory Alcohol Use: Other Drug Use: none Lives with: Family Lives In: Home Review of Systems ROS As stated above in the HPI, otherwise all systems are reviewed and negative. Physical Exam Physical Exam Vital Signs: Temperature: 98.5, Source: Temporal, Heart Rate: 88, Respiratory Rate: 16, BP: 132/66, Pulse Oximetry: 99, Weight: 89.090 Oxygen Flow Rate: 0 Physical Exam VITALS: Reviewed and as above. GENERAL: Alert, nontoxic appearing, no apparent distress. RESPIRATORY: No increased work of breathing, no respiratory distress, speaking in full clear sentences CV: Radial pulse intact, brisk capillary refill to left upper extremity MUSCULOSKELETAL: No swelling, nontender to palpation to left forearm SKIN: Left forearm Warm, No erythema or ecchymosis NEURO: Sensation intact to left limb, Progress Results/Orders Results/Orders Vital Signs 07/14/25 16:06 Temp 98.5 Pulse 88 Resp 16 B/P (MAP) 132/66 Pulse Ox 99 O2 Flow Rate 0 Medical Decision Making Additional information obtaine: old records Findings This 20-year-old female who was recently diagnosed with superficia venous thromboembolism of the left forearm presented requesting refill of Eliquis as she had been prescribed Eliquis by emergency physician and discharged to follow up with primary care provider for continuation of Eliquis, patient reported primary care provider had plan to continue Eliquis though a prescription was not sent, patient is to follow up tomorrow with primary care provider to clear up if she has to stay on Eliquis. Patient is otherwise well-appearing and the limb is non swollen and nontender though due to patient's history of blood clotting disorder and recent placing her in a higher risk for thromboembolism Eliquis will be continued until patient can follow up with primary care provider as scheduled. Patient is hemodynamically stable without evidence of hypoxia in his appropriate for outpatient follow up. Patient provided home care instructions, return to care precautions, and follow up instructions which he verbalized understanding of. Differential Dx:Considerations: Include: Adverse circumstances, Economic, Psychosocial, Medication refill, Medication non-compliance, Other (DVT, PE, neurovascular injury) Departure Time of Disposition: 17:25 Disposition: HOME / SELF CARE / HOMELESS Impression: Primary Impression: Arm thromboembolism, superficial, acute Qualified Codes: I82.612 - Acute embolism and thrombosis of superficial veins of left upper extremity Condition: Improved Additional Instructions: Continue to take the Eliquis as previously prescribed follow up as scheduled with your primary care provider. Please follow up with your primary care provider in the next few days. Please return to the emergency department for any new or worsening concerning symptoms including but not limited to shortness of breath or chest pain. Referrals: NO PRIMARY CARE PROVIDER (PCP) Prescriptions Apixaban (ELIQUIS) 5 Mg Tablet 1 TAB PO Q12H for 14 Days, #36 TAB 0 Refills For the 1st four days take two pills every 12 hours. After the 1st four days take one pill every 12 hours. Prov: KATHRYN FLAHERTY 07/14/25 Education Educated: Patient Educated regarding: diagnosis, treatment, prognosis, need for follow up Signature Scribe Signature: No scribe Attestation: The note accurately reflects work and decisions made by me.MALIK Pearce 07/15/25 00:47 KATHRYN FLAHERTY Jul 14, 2025 17:20
[2025-07-14] MEDS ORDERED: APIX5TAB3 PO (17:34)
== END 2025-07-14 17:27 | disposition home or self-care (01) ==
LOC: ER 16:03
DX: I82.612 Acute embolism and thrombosis of superficial veins of left upper extremity (principal); J45.909 Unspecified asthma, uncomplicated; F41.9 Anxiety disorder, unspecified; Z79.01 Long term (current) use of anticoagulants; Z88.0 Allergy status to penicillin; Z88.2 Allergy status to sulfonamides; Z88.8 Allergy status to other drugs, medicaments and biological substances; Z79.899 Other long term (current) drug therapy
CPT/HCPCS: 99282; C1758